=== PATIENT | female | born 1950 | race Two or more races ===

== ENCOUNTER 2016-12-28 23:06 | Emergency (ER) | payer OTHER ==
[~2016-12-28] VITALS: Ht 157.5 cm; Wt 91.3 kg
[2016-12-29 03:05] LABS: Basophils # (auto) 0 uL; Basophils % (auto) 0.4 % (0.0-2.0); Eosinophils # (auto) 0.1 uL; Eosinophils % (auto) 1.3 % (0.0-7.0); Hematocrit 29.6 % (36.0-46.0); Hemoglobin 9.6 g/dL (12.2-16.2); Lymphocytes % (auto) 20.2 % (10.0-50.0); Mean Corpuscular Hemoglobin 28.2 pg (28.0-32.0); Mean Corpuscular Hgb Conc. 32.4 g/dL (32.0-36.0); Mean Corpuscular Volume 87.1 fL (80.0-100.0); Mean Platelet Volume 8.4 fL (7.4-10.4); Monocytes # (auto) 0.3 uL; Monocytes % (auto) 6.6 % (0.0-12.0); Neutrophils # (auto) 3.7 uL; Neutrophils % (auto) 71.5 % (37.0-80.0); Platelet Count (auto) 260 10^3/uL (140-450); Red Cell Distribution Width 13.8 % (11.6-16.0); White Blood Cell 5.1 10^3/uL (4.4-10.8)
[2016-12-29 03:07] LABS: Albumin 3.4 g/dL (3.4-5.0); BUN/Creatinine Ratio 3.5; Bilirubin, Total 0.7 mg/dL (0.2-1.0); Calcium 8.6 mg/dL (8.5-10.1); Potassium 3.7 mmol/L (3.5-5.1)
[2016-12-29 04:17] VITALS: BP 204/80
== END 2016-12-29 05:47 | disposition home or self-care (01) ==
LOC: ER 23:06 → EDBD 23:06 → ER 12-29 05:47
DX: T82.318A Breakdown (mechanical) of other vascular grafts, initial encounter (principal); E11.9 Type 2 diabetes mellitus without complications; I10 Essential (primary) hypertension; Z99.2 Dependence on renal dialysis
CPT/HCPCS: 36415; 80053; 85025

== ENCOUNTER 2017-02-20 15:02 | Emergency (ER) | payer OTHER ==
[~2017-02-20] VITALS: Ht 157.5 cm; Wt 90.7 kg
[2017-02-20 17:17] LABS: Albumin 3.3 g/dL (3.4-5.0); BUN/Creatinine Ratio 5.1; Bilirubin, Total 1.1 mg/dL (0.2-1.0); Calcium 9.5 mg/dL (8.5-10.1); Potassium 4.4 mmol/L (3.5-5.1); Total Protein 6.6 g/dL (6.4-8.2)
[2017-02-20 18:58] VITALS: BP 140/71
== END 2017-02-20 20:14 | disposition home or self-care (01) ==
LOC: ER 15:09
DX: I10 Essential (primary) hypertension (principal); E11.65 Type 2 diabetes mellitus with hyperglycemia
CPT/HCPCS: 36415; 80053; 82962

== ENCOUNTER 2017-03-08 22:52 | Inpatient (IN) | payer OTHER ==
[~2017-03-08] VITALS: Ht 157.5 cm; Wt 78.9 kg
[2017-03-08 23:49] LABS: Basophils # (auto) 0 uL; Basophils % (auto) 0.3 % (0.0-2.0); DEFINITIVE VIEW TRANSMISSION; Eosinophils # (auto) 0 uL; Eosinophils % (auto) 0.6 % (0.0-7.0); Hematocrit 38.2 % (36.0-46.0); Hemoglobin 11.9 g/dL (12.2-16.2); Lymphocytes # (auto) 0.9 uL; Lymphocytes % (auto) 16.2 % (10.0-50.0); Mean Corpuscular Hemoglobin 26.1 pg (28.0-32.0); Mean Corpuscular Hgb Conc. 31.3 g/dL (32.0-36.0); Mean Corpuscular Volume 83.5 fL (80.0-100.0); Mean Platelet Volume 8.3 fL (7.4-10.4); Monocytes # (auto) 0.4 uL; Monocytes % (auto) 7.5 % (0.0-12.0); Neutrophils % (auto) 75.4 % (37.0-80.0); Platelet Count (auto) 237 10^3/uL (140-450); Red Cell Distribution Width 15.6 % (11.6-16.0); White Blood Cell 5.3 10^3/uL (4.4-10.8)
[2017-03-08 23:57] LABS: Partial Thromboplastin Time 44.5 sec (22.64-33.71)
[2017-03-09] LABS: Prothrombin Time 49.9 sec (9.37-12.3)
[2017-03-09 00:01] LABS: INR 4.51 (0.9-1.15)
[2017-03-09 00:07] LABS: Albumin 2.9 g/dL (3.4-5.0); BUN/Creatinine Ratio 5.1; Bilirubin, Total 0.6 mg/dL (0.2-1.0); Potassium 3.4 mmol/L (3.5-5.1); Total Protein 6.4 g/dL (6.4-8.2)
[2017-03-09] MEDS ORDERED: MORPHINE SULF INJ 2 MG/ML SYRINGE 1ML IV PRN (04:45)
[2017-03-09] MEDS ORDERED: DOCUSATE SOD 100 MG CAP PO PRN (04:45)
[2017-03-09] MEDS ORDERED: PHYTONADIONE (VIT K)10 MG/ML 1ML VIAL SUBCUT ONE (04:45)
[2017-03-09] MEDS ORDERED: ALBUTEROL SULF 2.5 MG/0.5ML(0.5%) NEB SOLN NEB PRN (04:45)
[2017-03-09] MEDS ORDERED: IPRATROPIUM BROM 0.5 MG/2.5ML INH SOL NEB PRN (04:45)
[2017-03-09] MEDS ORDERED: DEXTROSE (50%) 50ML SYRG IV PRN (04:45)
[2017-03-09] MEDS ORDERED: NITROGLYCERIN 0.4 MG SL TAB SL PRN (04:45)
[2017-03-09] MEDS: ACCU-CHEK COMFORT CURVE STRIP VI SCH ×2 (05:26→12:05)
[2017-03-09] MEDS: InsuLIN REG 1unit/0.01ml Soln (100units/ml) SC SCH ×2 (05:31→12:05)
[2017-03-09 06:52] VITALS: BP 166/76
[2017-03-09 09:20] VITALS: BP 149/74
[2017-03-09 09:30] VITALS: BP 149/72
[2017-03-09] MEDS ORDERED: ALPRAZolam 0.5 MG TAB PO SCH (10:00)
[2017-03-09] MEDS ORDERED: METOPROLOL TARTRATE 50 MG TAB PO SCH (10:00)
[2017-03-09] MEDS ORDERED: PANTOPRAZOLE SODIUM 40 MG/10 ML VIAL IV SCH (10:00)
[2017-03-09 10:45] LABS: Partial Thromboplastin Time 43.2 sec (22.64-33.71)
[2017-03-09 10:50] LABS: Prothrombin Time 44.7 sec (9.37-12.3)
[2017-03-09 10:52] LABS: INR 4.04 (0.9-1.15)
[2017-03-09 11:20] VITALS: BP 149/81
[2017-03-09 13:48] VITALS: BP 132/68
[2017-03-09] MEDS ORDERED: PRAMIPEXOLE DIHYDROCHLORIDE MO 0.25 MG TAB PO SCH (22:00)
== END 2017-03-09 16:00 | disposition home or self-care (01) | DRG 314 ==
LOC: EDBD 22:52 → ER 22:52 → TELE 22:53 → TELE-CENTR 03-09 09:09
PROVIDERS: ADMIT Family Medicine; ATTEND Internal Medicine Geriatric Medicine
DX: T82.838A Hemorrhage due to vascular prosthetic devices, implants and grafts, initial encounter (principal); N18.6 End stage renal disease; I12.0 Hypertensive chronic kidney disease with stage 5 chronic kidney disease or end stage renal disease; D68.32 Hemorrhagic disorder due to extrinsic circulating anticoagulants; Y83.8 Other surgical procedures as the cause of abnormal reaction of the patient, or of later complication, without mention of misadventure at the time of the procedure; D63.1 Anemia in chronic kidney disease; E03.9 Hypothyroidism, unspecified; E11.22 Type 2 diabetes mellitus with diabetic chronic kidney disease; F41.9 Anxiety disorder, unspecified; I48.91 Unspecified atrial fibrillation; T45.515A Adverse effect of anticoagulants, initial encounter; Z86.73 Personal history of transient ischemic attack (TIA), and cerebral infarction without residual deficits; Z99.2 Dependence on renal dialysis; Y92.89 Other specified places as the place of occurrence of the external cause; Z90.49 Acquired absence of other specified parts of digestive tract
CPT/HCPCS: 36415; 80053; 82962; 83036; 85025; 85610; 85730; 96372; C9113; J1815; J3430

== ENCOUNTER 2017-03-31 18:39 | Emergency (ER) | payer OTHER ==
[~2017-03-31] VITALS: Ht 160 cm; Wt 92.5 kg
[2017-03-31] MEDS ORDERED: NEOMYCIN-BACITRACIN-POLYM UNITDOSE PKG TOP OINT TOP ONE (20:00)
[2017-03-31] MEDS ORDERED: cefTRIAXone 1GM/50ML D5W 50 ML IV ONE (20:15)
[2017-03-31 21:39] LABS: Basophils # (auto) 0 uL; Basophils % (auto) 0.3 % (0.0-2.0); CONDITION Y; DEFINITIVE SEE PRINTOUT; Eosinophils # (auto) 0 uL; Eosinophils % (auto) 0.4 % (0.0-7.0); Lymphocytes # (auto) 0.9 uL; Lymphocytes % (auto) 21.8 % (10.0-50.0); Mean Corpuscular Hemoglobin 26.1 pg (28.0-32.0); Mean Corpuscular Hgb Conc. 31.6 g/dL (32.0-36.0); Mean Corpuscular Volume 82.7 fL (80.0-100.0); Mean Platelet Volume 9.3 fL (7.4-10.4); Monocytes # (auto) 0.4 uL; Monocytes % (auto) 10.5 % (0.0-12.0); Neutrophils # (auto) 2.8 uL; Platelet Count (auto) 161 10^3/uL (140-450); Red Cell Distribution Width 19.3 % (11.6-16.0); White Blood Cell 4.2 10^3/uL (4.4-10.8)
[2017-03-31 21:46] LABS: Albumin 2.6 g/dL (3.4-5.0); BUN/Creatinine Ratio 3.7; Calcium 8.5 mg/dL (8.5-10.1); Potassium 4.1 mmol/L (3.5-5.1)
[2017-03-31 21:49] LABS: Bilirubin, Total 0.8 mg/dL (0.2-1.0); Total Protein 5.6 g/dL (6.4-8.2)
[2017-03-31 21:53] LABS: Partial Thromboplastin Time 39.5 sec (22.64-33.71)
[2017-03-31 21:56] LABS: Prothrombin Time 44.3 sec (9.37-12.3)
[2017-03-31 21:59] LABS: INR 4.01 (0.9-1.15)
[2017-03-31 22:21] VITALS: BP 150/81
== END 2017-03-31 23:20 | disposition home or self-care (01) ==
LOC: EDBD 18:39 → EDUNIT# 18:39 → ER 18:46
DX: T82.838A Hemorrhage due to vascular prosthetic devices, implants and grafts, initial encounter (principal); Z86.73 Personal history of transient ischemic attack (TIA), and cerebral infarction without residual deficits; E11.22 Type 2 diabetes mellitus with diabetic chronic kidney disease; N18.6 End stage renal disease; I12.0 Hypertensive chronic kidney disease with stage 5 chronic kidney disease or end stage renal disease; E07.9 Disorder of thyroid, unspecified; Z90.49 Acquired absence of other specified parts of digestive tract; Z98.51 Tubal ligation status; D68.9 Coagulation defect, unspecified; Z99.2 Dependence on renal dialysis; Y84.1 Kidney dialysis as the cause of abnormal reaction of the patient, or of later complication, without mention of misadventure at the time of the procedure; Y92.89 Other specified places as the place of occurrence of the external cause
CPT/HCPCS: 36415; 80053; 82962; 85025; 85610; 85730; 93005; 96365; 99291; J0696

== ENCOUNTER 2017-05-21 17:09 | Emergency (ER) | payer OTHER, MEDICAID ==
[~2017-05-21] VITALS: Ht 157.5 cm; Wt 94.8 kg
[2017-05-21 17:28] LABS: Basophils # (auto) 0 uL; Basophils % (auto) 0.3 % (0.0-2.0); CONDITION Y; DEFINITIVE SEE PRINTOUT; Eosinophils # (auto) 0 uL; Eosinophils % (auto) 0.2 % (0.0-7.0); Hematocrit 36.5 % (36.0-46.0); Hemoglobin 11.6 g/dL (12.2-16.2); Lymphocytes # (auto) 0.7 uL; Lymphocytes % (auto) 13.8 % (10.0-50.0); Mean Corpuscular Hemoglobin 27.3 pg (28.0-32.0); Mean Corpuscular Hgb Conc. 31.9 g/dL (32.0-36.0); Mean Corpuscular Volume 85.6 fL (80.0-100.0); Monocytes # (auto) 0.2 uL; Monocytes % (auto) 5.2 % (0.0-12.0); Neutrophils # (auto) 3.9 uL; Neutrophils % (auto) 80.5 % (37.0-80.0); Platelet Count (auto) 168 10^3/uL (140-450); White Blood Cell 4.8 10^3/uL (4.4-10.8)
[2017-05-21 17:38] LABS: Red Cell Distribution Width 24.9 % (11.6-16.0)
[2017-05-21 17:40] LABS: Calcium 9.2 mg/dL (8.5-10.1); Potassium 3.3 mmol/L (3.5-5.1)
[2017-05-21 17:42] LABS: BUN/Creatinine Ratio 5.8
[2017-05-21 17:44] LABS: Total Protein 6.7 g/dL (6.4-8.2)
[2017-05-21 17:45] LABS: Platelet Estimate Adequate; Stomatocytes Few
[2017-05-21 17:46] LABS: Anisocytosis Moderate; Ovalocytes FEW; Polychromasia Slight
[2017-05-21 21:50] VITALS: BP 151/76
[2017-05-21] MEDS ORDERED: cefTRIAXone SOD 1,000 MG VL ONE (22:22)
[2017-05-21] MEDS ORDERED: cefTRIAXone SOD 1,000 MG VL IM ONE (22:30)
== END 2017-05-21 23:19 | disposition home or self-care (01) ==
LOC: ER 17:10
DX: T82.7XXA Infection and inflammatory reaction due to other cardiac and vascular devices, implants and grafts, initial encounter (principal); E11.22 Type 2 diabetes mellitus with diabetic chronic kidney disease; I12.0 Hypertensive chronic kidney disease with stage 5 chronic kidney disease or end stage renal disease; N18.6 End stage renal disease; Z99.2 Dependence on renal dialysis; Z90.89 Acquired absence of other organs; Z90.49 Acquired absence of other specified parts of digestive tract
CPT/HCPCS: 36415; 80053; 85025; 99284; J0696

== ENCOUNTER 2017-09-13 09:37 | Emergency (ER) | payer OTHER, MEDICAID ==
[~2017-09-13] VITALS: Ht 157.5 cm; Wt 93.0 kg
[2017-09-13 10:41] LABS: Basophils # (auto) 0 uL; Basophils % (auto) 0.3 % (0.0-2.0); Eosinophils # (auto) 0 uL; Eosinophils % (auto) 0.2 % (0.0-7.0); Hematocrit 43.8 % (36.0-46.0); Hemoglobin 13.7 g/dL (12.2-16.2); Lymphocytes # (auto) 0.6 uL; Lymphocytes % (auto) 15.9 % (10.0-50.0); Mean Corpuscular Hemoglobin 28.3 pg (28.0-32.0); Mean Corpuscular Hgb Conc. 31.2 g/dL (32.0-36.0); Mean Corpuscular Volume 90.5 fL (80.0-100.0); Mean Platelet Volume 8.7 fL (6.9-10.8); Monocytes # (auto) 0.5 uL; Monocytes % (auto) 12.1 % (0.0-12.0); Neutrophils # (auto) 2.7 uL; Neutrophils % (auto) 71.5 % (37.0-80.0); Nucleated Red Blood Cells % 0.4 %; Platelet Count (auto) 128 10^3/uL (140-450); Red Cell Distribution Width 18.8 % (11.8-14.3); White Blood Cell 3.8 10^3/uL (4.4-10.8)
[2017-09-13 11:04] LABS: Albumin 3.2 g/dL (3.4-5.0); BUN/Creatinine Ratio 5.3; Bilirubin, Total 1.9 mg/dL (0.2-1.0); Calcium 7.8 mg/dL (8.5-10.1); Potassium 3.8 mmol/L (3.5-5.1); Total Protein 6.7 g/dL (6.4-8.2)
[2017-09-13 12:23] VITALS: BP 139/86
== END 2017-09-13 16:08 | disposition home or self-care (01) ==
LOC: ER 09:37
DX: E11.22 Type 2 diabetes mellitus with diabetic chronic kidney disease (principal); I12.0 Hypertensive chronic kidney disease with stage 5 chronic kidney disease or end stage renal disease; N18.6 End stage renal disease; R60.0 Localized edema; Z99.2 Dependence on renal dialysis; E07.9 Disorder of thyroid, unspecified; Z86.73 Personal history of transient ischemic attack (TIA), and cerebral infarction without residual deficits
CPT/HCPCS: 36415; 71010; 80053; 84484; 85025; 93970

== ENCOUNTER 2018-05-10 16:25 | Emergency (ER) | payer MEDICAID, OTHER ==
[~2018-05-10] VITALS: Ht 157.5 cm; Wt 81.6 kg
[2018-05-10] MEDS ORDERED: HYDROcodone-ACET 10/325MG TAB PO ONE (21:15)
[2018-05-10 21:23] LABS: Basophils # (auto) 0 uL; Basophils % (auto) 0.3 % (0.0-2.0); Eosinophils # (auto) 0 uL; Eosinophils % (auto) 0.5 % (0.0-7.0); Hematocrit 31.8 % (36.0-46.0); Hemoglobin 10.4 g/dL (12.2-16.2); Lymphocytes # (auto) 0.6 uL; Lymphocytes % (auto) 13.6 % (10.0-50.0); Mean Corpuscular Hemoglobin 29.4 pg (28.0-32.0); Mean Corpuscular Hgb Conc. 32.8 g/dL (32.0-36.0); Mean Corpuscular Volume 89.7 fL (80.0-100.0); Monocytes # (auto) 0.5 uL; Monocytes % (auto) 10.4 % (0.0-12.0); Neutrophils # (auto) 3.3 uL; Neutrophils % (auto) 75.2 % (37.0-80.0); Nucleated Red Blood Cells % 0.1 %; Platelet Count (auto) 186 10^3/uL (140-450); Red Blood Cells 3.55 10^6/uL (4.0-5.20); Red Cell Distribution Width 16.2 % (11.8-14.3); White Blood Cell 4.4 10^3/uL (4.4-10.8)
[2018-05-10 22:03] LABS: INR 3.84 (0.9-1.15); Partial Thromboplastin Time 42.5 sec (23.78-33.04); Prothrombin Time 38.1 sec (9.27-12.13)
[2018-05-10 22:35] LABS: Albumin 3.1 g/dL (3.4-5.0); BUN/Creatinine Ratio 5.6; Potassium 3.5 mmol/L (3.5-5.1)
[2018-05-10 23:18] LABS: Bilirubin, Total 1.1 mg/dL (0.2-1.0); Total Protein 6.9 g/dL (6.4-8.2)
[2018-05-11 07:18] VITALS: BP 162/53
== END 2018-05-11 07:35 | disposition home or self-care (01) ==
LOC: ER 16:25 → EDBD 16:25 → ER 05-11 07:35
DX: T82.591A Other mechanical complication of surgically created arteriovenous shunt, initial encounter (principal); T82.838A Hemorrhage due to vascular prosthetic devices, implants and grafts, initial encounter; I12.0 Hypertensive chronic kidney disease with stage 5 chronic kidney disease or end stage renal disease; E11.22 Type 2 diabetes mellitus with diabetic chronic kidney disease; N18.6 End stage renal disease; Z99.2 Dependence on renal dialysis; Z90.49 Acquired absence of other specified parts of digestive tract
CPT/HCPCS: 36415; 80053; 85025; 85610; 85730

== ENCOUNTER 2018-08-26 18:23 | Emergency (ER) | payer OTHER ==
[~2018-08-26] VITALS: Ht 160 cm; Wt 90.7 kg
[2018-08-26 19:14] LABS: Basophils # (auto) 0 uL; Basophils % (auto) 0.3 % (0.0-2.0); Eosinophils # (auto) 0 uL; Eosinophils % (auto) 0.4 % (0.0-7.0); Hematocrit 41.4 % (36.0-46.0); Hemoglobin 13.1 g/dL (12.2-16.2); Lymphocytes # (auto) 0.7 uL; Lymphocytes % (auto) 15.3 % (10.0-50.0); Mean Corpuscular Hemoglobin 27.7 pg (28.0-32.0); Mean Corpuscular Hgb Conc. 31.6 g/dL (32.0-36.0); Mean Corpuscular Volume 87.6 fL (80.0-100.0); Monocytes # (auto) 0.3 uL; Monocytes % (auto) 6.7 % (0.0-12.0); Neutrophils # (auto) 3.4 uL; Neutrophils % (auto) 77.3 % (37.0-80.0); Nucleated Red Blood Cells % 0.1 %; Platelet Count (auto) 240 10^3/uL (140-450); Red Blood Cells 4.73 10^6/uL (4.0-5.20); Red Cell Distribution Width 16.7 % (11.8-14.3); White Blood Cell 4.4 10^3/uL (4.4-10.8)
[2018-08-26 19:30] LABS: INR 2.29 (0.9-1.15); Partial Thromboplastin Time 35.5 sec (23.78-33.04); Prothrombin Time 23.4 sec (9.27-12.13)
[2018-08-26 19:34] LABS: Albumin 3.8 g/dL (3.4-5.0); BUN/Creatinine Ratio 5.8; Potassium 3.7 mmol/L (3.5-5.1)
[2018-08-26 19:37] LABS: Bilirubin, Total 1.2 mg/dL (0.2-1.0); Total Protein 8.6 g/dL (6.4-8.2)
[2018-08-26] MEDS ORDERED: ACETAMINOPHEN 325 MG TAB PO ONE (21:30)
[2018-08-27] MEDS ORDERED: HYDROcodone-ACET 7.5/325MG TAB PO ONE (02:00)
[2018-08-27 06:07] VITALS: BP 162/78
== END 2018-08-27 06:19 | disposition home or self-care (01) ==
LOC: ER 18:23
DX: T82.838A Hemorrhage due to vascular prosthetic devices, implants and grafts, initial encounter (principal); E07.9 Disorder of thyroid, unspecified; E11.22 Type 2 diabetes mellitus with diabetic chronic kidney disease; I12.0 Hypertensive chronic kidney disease with stage 5 chronic kidney disease or end stage renal disease; N18.6 End stage renal disease; Z99.2 Dependence on renal dialysis; Z90.49 Acquired absence of other specified parts of digestive tract; Z86.73 Personal history of transient ischemic attack (TIA), and cerebral infarction without residual deficits; Y84.1 Kidney dialysis as the cause of abnormal reaction of the patient, or of later complication, without mention of misadventure at the time of the procedure; Y92.89 Other specified places as the place of occurrence of the external cause
CPT/HCPCS: 36415; 80053; 85025; 85610; 85730; 86850; 86900; 86901

== ENCOUNTER 2019-12-09 13:06 | Inpatient (IN) | payer OTHER ==
[~2019-12-09] VITALS: Ht 152.4 cm; Wt 82.0 kg
[~2019-12-09 13:06] MED LIST: APIX2.5T PO; CINA30TA2 PO; DIGO0.12 PO; GABA100C9 PO; GLIP2.5T28 PO; METO-169 PO; NALO1TAB2 PO; PANT40TA2 PO; ROPI6TAB PO; SEVE800T8 PO
[2019-12-09] MEDS ORDERED: SODIUM CHLORIDE 0.9% 500 ML IVB ONE (13:51)
[2019-12-09] MEDS ORDERED: SODIUM CHLORIDE 0.9% 1,000 ML IV ONE (13:51)
[2019-12-09 15:57] LABS: Lactic Acid w/Reflex 2.1 mmol/L (0.4-2.0)
[2019-12-09 15:59] LABS: Albumin 2.9 g/dL (3.4-5.0); Anion Gap 14 (5-15); Blood Alcohol < 3.0 mg/dL (0-5); Calcium 9.3 mg/dL (8.5-10.1); Carbon Dioxide 25 mmol/L (21-32); Chloride 95 mmol/L (98-107); Glucose 370 mg/dL (74-106); Potassium 4.9 mmol/L (3.5-5.1)
[2019-12-09 16:04] LABS: Alkaline Phosphatase 463 U/L (45-117); Bilirubin, Total 1.4 mg/dL (0.2-1.0); GFR African American 10 mL/min; GFR Non-African American 8 mL/min
[2019-12-09 16:12] LABS: Basophils # (auto) 0 10 ^3/uL (0-0.2); Basophils % (auto) 0.1 % (0.0-2.0); Eosinophils # (auto) 0 10 ^3/uL (0-0.8); Hemoglobin 11.3 g/dL (12.2-16.2); Lymphocytes # (auto) 0.4 10 ^3/uL (0.4-5.4); Lymphocytes % (auto) 3.6 % (10.0-50.0); Mean Corpuscular Hemoglobin 28.1 pg (28.0-32.0); Mean Corpuscular Hgb Conc. 32.2 g/dL (32.0-36.0); Mean Corpuscular Volume 87.3 fL (80.0-100.0); Monocytes # (auto) 0.5 10 ^3/uL (0-1.3); Monocytes % (auto) 5.3 % (0.0-12.0); Neutrophils # (auto) 9.3 10 ^3/uL (1.6-8.6); Platelet Count (auto) 233 10^3/uL (140-450); Red Blood Cells 4.01 10^6/uL (4.0-5.20); Red Cell Distribution Width 16.8 % (11.8-14.3); White Blood Cell 10.3 10^3/uL (4.4-10.8)
[2019-12-09 16:17] LABS: Alanine Aminotransferase 73 U/L (13-56); Aspartate Aminotransferase 161 U/L (15-37); BUN/Creatinine Ratio 8.4; Blood Urea Nitrogen 45 mg/dL (7-18); Total Protein 7.3 g/dL (6.4-8.2)
[2019-12-09 16:21] LABS: Sodium 134 mmol/L (136-145)
[2019-12-09 18:07] LABS: INR 1.24 (0.9-1.15); Partial Thromboplastin Time 31.9 sec (23.64-32.05)
[2019-12-09] MEDS ORDERED: cefTRIAXone 1GM/50ML D5W 50 ML IV ONE (18:15)
[2019-12-09 19:00] LABS: Basophils # (auto) 0 10 ^3/uL (0-0.2); Basophils % (auto) 0.1 % (0.0-2.0); Eosinophils # (auto) 0 10 ^3/uL (0-0.8); Hematocrit 34.4 % (36.0-46.0); Hemoglobin 11.3 g/dL (12.2-16.2); Lymphocytes # (auto) 0.4 10 ^3/uL (0.4-5.4); Lymphocytes % (auto) 4.6 % (10.0-50.0); Mean Corpuscular Hemoglobin 28.4 pg (28.0-32.0); Mean Corpuscular Hgb Conc. 32.7 g/dL (32.0-36.0); Mean Corpuscular Volume 86.8 fL (80.0-100.0); Monocytes # (auto) 0.6 10 ^3/uL (0-1.3); Monocytes % (auto) 5.9 % (0.0-12.0); Neutrophils # (auto) 8.6 10 ^3/uL (1.6-8.6); Neutrophils % (auto) 89.4 % (37.0-80.0); Platelet Count (auto) 219 10^3/uL (140-450); Red Blood Cells 3.96 10^6/uL (4.0-5.20); White Blood Cell 9.6 10^3/uL (4.4-10.8)
[2019-12-09] MEDS ORDERED: DEXTROSE (50%) 50ML SYRG IV PRN (19:00)
[2019-12-09] MEDS ORDERED: MORPHINE SULF INJ 2 MG/ML SYRINGE 1ML IV PRN (19:00)
[2019-12-09] MEDS ORDERED: NITROGLYCERIN 0.4 MG SL TAB SL PRN (19:00)
[2019-12-09] MEDS ORDERED: BUMETANIDE 1mg/4ml VIAL (0.25mg/ml) IV ONE (19:00)
[2019-12-09 19:11] LABS: Urine Bacteria MANY /hpf (None Seen); Urine Blood 2+ /uL (Negative); Urine Mucus FEW (None Seen); Urine Specific Gravity 1.013 (1.001-1.035); Urine WBC 691 /hpf (0 - 5); Urine WBC Clumps PRESENT /hpf (None Seen)
[2019-12-09 22:00] VITALS: BP 163/72
--- NOTE | 2019-12-09 22:25 | NUR ---
PATIENT ARRIVED TO UNIT VIA GURNEY. SHE IS UNABLE TO AMBULATE OR TRANSFER. SHE HAS A CONTORTED RIGHT ANKLE THAT I WAS TOLD WAS DUE TO A PREVIOUSLY DISLOCATED ANKLE 5 YEARS AGO. SHE HAS AN OPTIFOAM COVERING A SACRAL PRESSURE ULCER. SHE HAS SOME SWELLING TO BILATERAL KNEES WITH RIGHT BEING GREATER THAN THE LEFT. SHE HAS A LEFT UPPER ARM FISTULA WITH AN 18 GAUGE IV TO THE RIGHT WRIST. SHE HAS A BURNS CATHETER THAT IS DRAINING YELLOW URINE PLACED IN THE EMERGENCY ROOM. SHE IS CURRENTLY ON 4L NC. FAMILY IS BEDSIDE. ALL QUESTIONS WERE ANSWERED REGARDING HER PLAN OF CARE. BED IS LOCKED IN LOWEST POSITION WITH SIDE RAILS UP X2. WILL CONTINUE TO MONITOR.
[2019-12-09 22:45] VITALS: BP 163/72
[2019-12-09] MEDS: APIXABAN 2.5 MG TAB PO SCH (22:56)
[2019-12-09] MEDS: GABAPENTIN 100 MG CAP PO SCH (22:57)
[2019-12-09] MEDS: ACCU-CHEK COMFORT CURVE STRIP VI SCH (22:57)
[2019-12-09] MEDS: InsuLIN REG 1unit/0.01ml Soln (100units/ml) SC SCH (22:58)
--- NOTE | 2019-12-09 23:00 | NUR ---
FAMILY STATED THAT THEY WILL BRING IN A LIST OF HER HOME MEDICATIONS TOMORROW.
[2019-12-10] MEDS: ACETAMINOPHEN 500 MG TAB PO PRN ×2 (05:11→14:57)
[2019-12-10 05:50] LABS: Basophils # (auto) 0 10 ^3/uL (0-0.2); Basophils % (auto) 0.1 % (0.0-2.0); Eosinophils # (auto) 0 10 ^3/uL (0-0.8); Hematocrit 34.9 % (36.0-46.0); Hemoglobin 11.4 g/dL (12.2-16.2); Lymphocytes # (auto) 0.4 10 ^3/uL (0.4-5.4); Lymphocytes % (auto) 4.8 % (10.0-50.0); Mean Corpuscular Hemoglobin 28.1 pg (28.0-32.0); Mean Corpuscular Hgb Conc. 32.6 g/dL (32.0-36.0); Mean Corpuscular Volume 86.4 fL (80.0-100.0); Monocytes # (auto) 0.4 10 ^3/uL (0-1.3); Neutrophils # (auto) 7.3 10 ^3/uL (1.6-8.6); Neutrophils % (auto) 90.1 % (37.0-80.0); Nucleated Red Blood Cells % 0.1 %; Platelet Count (auto) 232 10^3/uL (140-450); Red Blood Cells 4.04 10^6/uL (4.0-5.20); Red Cell Distribution Width 17.1 % (11.8-14.3); White Blood Cell 8.1 10^3/uL (4.4-10.8)
[2019-12-10 05:59] VITALS: BP 127/57
[2019-12-10] MEDS: ACCU-CHEK COMFORT CURVE STRIP VI SCH ×4 (06:37→21:50)
[2019-12-10] MEDS: InsuLIN REG 1unit/0.01ml Soln (100units/ml) SC SCH ×4 (06:38→21:51)
--- NOTE | 2019-12-10 06:40 | NUR ---
CRITICAL LAB: TROPONIN 1.500
--- NOTE | 2019-12-10 06:55 | NUR ---
PHARMACY CALLED TO GET ELIQUIS DOSE ADJUSTED FROM 2.5 TO 5MG SINCE THEY DO NOT MEET CRITERIA FOR RENAL ADJUSTED DOSE OF 2.5
--- NOTE | 2019-12-10 06:57 | NUR ---
PLACED CALL TO HOSPITALIST FOR ELEVATED TROPONIN AND CHANGE OF ELIQUIS DOSE.
[2019-12-10] MEDS: SEVELAMER 800 MG TAB PO SCH ×3 (08:07→17:55)
[2019-12-10 09:00] VITALS: BP 126/61
[2019-12-10] MEDS: cefTRIAXone 1GM/50ML D5W 50 ML IV SCH (09:27)
[2019-12-10] MEDS: APIXABAN 2.5 MG TAB PO SCH ×2 (09:30→21:55)
[2019-12-10] MEDS: GABAPENTIN 100 MG CAP PO SCH ×3 (09:30→21:54)
--- NOTE | 2019-12-10 09:30 | NUR ---
AIR MATTRESS: Air mattress ordered at [facility],Reference # [id number]; ETA 12/10/19 @1635, Call [facility] if need to follow up at [phone] Addendum: 12/10/19 at 1549 by Margarette Carlisle RN Amended: Links added.
[2019-12-10] MEDS: METOPROLOL SUCCINATE XL 50 MG TAB PO SCH (09:31)
[2019-12-10] MEDS ORDERED: PANTOPRAZOLE 40 MG TAB PO SCH (10:00)
--- NOTE | 2019-12-10 10:05 | NUR ---
Microbiology Received call from microbiology regarding patient's blood culture. Positive for Gram negative rods. Patient on Rocephin 1gm daily. MD will be notified on rounding.
--- NOTE | 2019-12-10 11:14 | NUR ---
Critical Troponin Troponin 1.5, Sadie Chang is aware. Patient for possible dialysis today.
--- NOTE | 2019-12-10 11:42 | NUR ---
WOUND CARE NOTE: Wound care in to see patient per wound care request regarding multiple skin integrity issue that are noted present on admission. Bedside nurse took photograph of patient's wounds/skin issue upon admission for reference. Patient is 69 years old female with admitting diagnosis of Metabolic Encephalopathy. Patient with history of htn,A Fib, CVA, Renal disease, DM,hyperlipidemia and Thyroid disease. Patient is resting in bed in Rm. 275B. Patient is awake, alert and able to verbalize needs. Patient reports pain on her digits, BRIANDA Parker at bedside and aware. Patient need assistance in turning and repositioning. Her Cristhian score is 12. Skin/wound assessment done with the assistance of patient's nurse, BRIANDA Parker. Patient's Rt and Lt sacrum has open full thickness wounds both measuring 2x2cm no measurable depth. Wound bed has mixture of red granulation tissue, pale pink and yellow slough.Kelsy wound is dark red, minimal serous drainage noted, no odor noted. Patient states that she has had the sacral wounds for couple of weeks. Sacral wounds are consistent with Stage 3 pressure injury. Cleansed patient's sacral pressure injuries with wound cleanser,patted dry with gauze, applied Thera honey gel and covered with Opti foam gentle dressing. Patient's Rt medial heel noted with non-blanchable redness (Stage 1 pressure injury). To posterior aspect of Rt heel noted 3x3cm dark maroon/purple intact DTI(Deep Tissue Injury). DTI is soft and boggy to touch. Patient reports "painful" R heel. Advised BRIANDA parker to apply [place] foam boots to patient's BLE. Patient tolerated well, repositioned for comfort facing her Lt side, redistributed pressure points with pillows. BRIANDA Parker at bedside. RECOMMENDATION: Nursing to continue with Daily/PRN dressing change to sacral pressure injuries per MD order, Dietary consult for wounds, frequent turning and re positioning schedule as condition permits, redistribute pressure points with pillows, air mattress (ordered),Alesha foam boot to BLE or elevate heels on pillows,continue monitoring by wound care while patient is hospitalized. Addendum: 12/10/19 at 1545 by Margarette Carlisle RN Amended: Links added.
[2019-12-10 12:27] VITALS: BP 152/64
[2019-12-10] MEDS ORDERED: TEMA15CA91 PO (15:18)
[2019-12-10] MEDS ORDERED: PANT40TA2 PO (15:18)
[2019-12-10] MEDS ORDERED: HYDR50TA15 PO (15:18)
[2019-12-10] MEDS ORDERED: GABA300C10 PO (15:18)
[2019-12-10] MEDS ORDERED: ISOS30TA4 PO (15:18)
[2019-12-10] MEDS ORDERED: LACTULOSE 20Gm/30ML SOLN PO ONE (15:45)
[2019-12-10] MEDS ORDERED: DOCUSATE SOD 100 MG CAP PO ONE (15:45)
[2019-12-10] MEDS: PANTOPRAZOLE 40 MG TAB PO SCH (16:00)
[2019-12-10] MEDS ORDERED: GABAPENTIN 300 MG CAP PO SCH (16:15)
--- NOTE | 2019-12-10 16:32 | NUR ---
D/C Planning Per [facility] consult for SNF placement. [facility] was [facility]ed to [facility]. Advised BRIANDA Parker physical therapy notes where pending.
--- NOTE | 2019-12-10 17:04 | NUR ---
Air Mattress Delivered
[2019-12-10 17:07] VITALS: BP 132/62
--- NOTE | 2019-12-10 17:09 | NUR ---
Medication reconciliation Family members at bedside. Home medications reconciled as per medications brought in from home. Family is requesting that the patient is not given any strong pain medication.
[2019-12-10] MEDS ORDERED: ROPI0.2533 PO (17:19)
--- NOTE | 2019-12-10 17:20 | NUR ---
Air Mattress Patient transferred to new bed with air mattress.
--- NOTE | 2019-12-10 17:30 | NUR ---
employment programs analyst Dialysis nurse at bedside.
[2019-12-10] MEDS ORDERED: SODIUM CHL 0.9% 1000 ML BAG XX ONE (17:45)
--- NOTE | 2019-12-10 18:13 | NUR ---
Critical troponin Troponin trending down 1.350. dough mixer helper at bedside. Cardiology already aware of 1.5 levels
--- NOTE | 2019-12-10 19:45 | NUR ---
BM/Patient linen change Patient had linen change after incontinence episode, lactulose given earlier for constipation. Skin integrity assessed for any changes, sacral pressure area, barrier cream applied. Full linen change. Patient repositioned for comfort with assistance. Dialysis nurse at bedside
[2019-12-10 20:00] VITALS: BP 131/56
--- NOTE | 2019-12-10 20:35 | NUR ---
Dr. Salazar at bedside
--- NOTE | 2019-12-10 21:28 | NUR ---
Dialysis Complete 2L out, pt tolerated well
[2019-12-10] MEDS: DOCUSATE SOD 100 MG CAP PO SCH (21:51)
[2019-12-10 22:00] VITALS: BP 131/56
--- NOTE | 2019-12-10 23:51 | NUR ---
Opening Shift Note Assumed care of patient, awake and alert. No S/S of distress/SOB or pain. Instructed on POC and to call for assist PRN, will continue to monitor for changes Q1hr and PRN. Dialysis at bedside Addendum: 12/11/19 at 0352 by Angela Pearson RN RN Wrong time 12/09 1944
[2019-12-11] MEDS: ACETAMINOPHEN 500 MG TAB PO PRN (01:11)
--- NOTE | 2019-12-11 01:11 | NUR ---
Pain Management Pt medicated for c/o 07/12 diabetic nerve pain on fingers, tylenol administered, 2200 gabapentin has been administered. Pt admitted for metabolic encephalopathy, family requests only give tylenol for pain, confusion increased with pain medication. Will continue to monitor
[2019-12-11 05:00] VITALS: BP 159/66
[2019-12-11 05:47] LABS: Basophils # (auto) 0 10 ^3/uL (0-0.2); Basophils % (auto) 0.2 % (0.0-2.0); Eosinophils # (auto) 0.1 10 ^3/uL (0-0.8); Eosinophils % (auto) 1.2 % (0.0-7.0); Hematocrit 32.9 % (36.0-46.0); Hemoglobin 10.8 g/dL (12.2-16.2); Lymphocytes # (auto) 0.4 10 ^3/uL (0.4-5.4); Lymphocytes % (auto) 8.2 % (10.0-50.0); Mean Corpuscular Hemoglobin 28.3 pg (28.0-32.0); Mean Corpuscular Hgb Conc. 32.8 g/dL (32.0-36.0); Mean Corpuscular Volume 86.3 fL (80.0-100.0); Monocytes # (auto) 0.6 10 ^3/uL (0-1.3); Monocytes % (auto) 11.4 % (0.0-12.0); Platelet Count (auto) 181 10^3/uL (140-450); Red Blood Cells 3.81 10^6/uL (4.0-5.20)
[2019-12-11 06:02] LABS: Calcium 9.4 mg/dL (8.5-10.1); Magnesium 2.1 mg/dL (1.6-2.6); Potassium 3.9 mmol/L (3.5-5.1)
[2019-12-11] MEDS: ACCU-CHEK COMFORT CURVE STRIP VI SCH ×4 (06:20→22:19)
[2019-12-11] MEDS: GABAPENTIN 100 MG CAP PO SCH ×3 (06:49→22:13)
[2019-12-11] MEDS: InsuLIN REG 1unit/0.01ml Soln (100units/ml) SC SCH ×4 (06:53→22:19)
[2019-12-11] MEDS: SEVELAMER 800 MG TAB PO SCH ×3 (08:58→18:41)
[2019-12-11 09:00] VITALS: BP 156/42
[2019-12-11] MEDS: cefTRIAXone 1GM/50ML D5W 50 ML IV SCH (09:23)
[2019-12-11] MEDS: DOCUSATE SOD 100 MG CAP PO SCH ×2 (09:57→22:00)
--- NOTE | 2019-12-11 10:17 | NUR ---
assessment Patient is a 69 year old female who is alert and oriented. Patients cognitive abilities are intact. Prior to admission patient lived home with family and functioned with assistance. Per patient she is on service with [facility] MWF at 1130am. Patient is aware of her consult for family requesting SNF placement for rehab. Patient agrees to SNF. Patient has a wheelchair and fww for home use. I informed patient she has a right to speak to a social services director regarding all care. I informed patient she has a right to participate in any and all discharge planning. Patient does not have a POA and advanced directive. I have offered patient information on POA and advanced directives. I informed the patient the advantages and benefits of having an Advanced Directive. Patient verbalized understanding and agreed to discharge plan. Addendum: 12/11/19 at 1027 by Erika BELL Amended: Links added.
[2019-12-11] MEDS ORDERED: VANCOMYCIN 1GM/250ML 250 ML IV ONE (10:30)
[2019-12-11] MEDS ORDERED: VANCOMYCIN PER PHARMACY 0 MG IV SCH (10:30)
[2019-12-11] MEDS: PANTOPRAZOLE 40 MG TAB PO SCH (10:44)
[2019-12-11] MEDS: APIXABAN 2.5 MG TAB PO SCH ×2 (10:44→22:13)
[2019-12-11] MEDS: METOPROLOL SUCCINATE XL 50 MG TAB PO SCH (10:44)
[2019-12-11 12:57] VITALS: BP 142/37
[2019-12-11 17:00] VITALS: BP 136/38
[2019-12-11 22:00] VITALS: BP 148/68
[2019-12-12 05:00] VITALS: BP 132/57
[2019-12-12 06:18] LABS: Potassium 4.8 mmol/L (3.5-5.1)
[2019-12-12 06:20] LABS: BUN/Creatinine Ratio 11.6; Basophils # (auto) 0 10 ^3/uL (0-0.2); Basophils % (auto) 0.3 % (0.0-2.0); Eosinophils # (auto) 0.1 10 ^3/uL (0-0.8); Eosinophils % (auto) 1.8 % (0.0-7.0); Hematocrit 31.5 % (36.0-46.0); Hemoglobin 10.1 g/dL (12.2-16.2); Lymphocytes # (auto) 0.8 10 ^3/uL (0.4-5.4); Lymphocytes % (auto) 17.1 % (10.0-50.0); Mean Corpuscular Hemoglobin 27.4 pg (28.0-32.0); Mean Corpuscular Hgb Conc. 31.9 g/dL (32.0-36.0); Mean Corpuscular Volume 85.8 fL (80.0-100.0); Monocytes # (auto) 0.6 10 ^3/uL (0-1.3); Monocytes % (auto) 13.5 % (0.0-12.0); Neutrophils # (auto) 3.2 10 ^3/uL (1.6-8.6); Neutrophils % (auto) 67.3 % (37.0-80.0); Platelet Count (auto) 173 10^3/uL (140-450); Red Blood Cells 3.68 10^6/uL (4.0-5.20); Red Cell Distribution Width 16.9 % (11.8-14.3); White Blood Cell 4.8 10^3/uL (4.4-10.8)
[2019-12-12] MEDS: GABAPENTIN 100 MG CAP PO SCH ×3 (06:34→21:23)
[2019-12-12] MEDS: ACCU-CHEK COMFORT CURVE STRIP VI SCH ×4 (06:35→22:55)
[2019-12-12] MEDS: InsuLIN REG 1unit/0.01ml Soln (100units/ml) SC SCH ×4 (06:35→22:56)
[2019-12-12] MEDS ORDERED: SODIUM CHL 0.9% 1000 ML BAG XX ONE (07:00)
--- NOTE | 2019-12-12 07:35 | NUR ---
RECEIVED REPORT AND ASSUMED CARE OF PT. A/OX4. DENIED S/S ACUTE DISTRESS. UPDATE PT WITH POC. BED AT LOWEST POSITION. CALL LIGHT AND BELONGINGS WITHIN REACH. WILL CONT TO MONITOR.
[2019-12-12 09:00] VITALS: BP 151/69
[2019-12-12] MEDS: SEVELAMER 800 MG TAB PO SCH ×3 (09:08→17:53)
[2019-12-12] MEDS: cefTRIAXone 1GM/50ML D5W 50 ML IV SCH (09:08)
[2019-12-12] MEDS: APIXABAN 2.5 MG TAB PO SCH ×2 (09:09→21:23)
[2019-12-12] MEDS: PANTOPRAZOLE 40 MG TAB PO SCH (09:09)
[2019-12-12] MEDS: DOCUSATE SOD 100 MG CAP PO SCH ×2 (09:11→21:23)
[2019-12-12] MEDS: METOPROLOL SUCCINATE XL 50 MG TAB PO SCH ×2 (10:00→17:55)
--- NOTE | 2019-12-12 10:07 | NUR ---
DIALYSIS NURSE AT BEDSIDE.
[2019-12-12 13:00] VITALS: BP 124/39
[2019-12-12] MEDS ORDERED: ERTAPENEM SOD INJ 0.5 GM in SODIUM CHL 0.9% 50 ML IV ONE (13:00)
[2019-12-12] MEDS: ACETAMINOPHEN 500 MG TAB PO PRN (13:33)
--- NOTE | 2019-12-12 13:49 | NUR ---
Nutrition Assessment Notes Please refer to link for full assessment notes. Est energy needs: 3910-3729 kcals (20-23 kcal/kgBW) Est protein needs: 87-95 gms/day (1.1-1.2 gm/kgBW) d/t HD Will continue to monitor and reassess prn. Addendum: 12/12/19 at [address] Amended: Links added.
--- NOTE | 2019-12-12 14:06 | NUR ---
PER WORKFORCE PLANNING ANALYST, 3000ML WAS TAKEN OUT.
[2019-12-12] MEDS ORDERED: VANCOMYCIN 1GM/250ML 250 ML IV ONE (16:00)
[2019-12-12 17:00] VITALS: BP 160/63
--- NOTE | 2019-12-12 17:59 | NUR ---
METOPROL GIVEN AT THIS TIME PT HAD DIALYSIS
--- NOTE | 2019-12-12 19:06 | NUR ---
A/OX4. DENIED S/S ACUTE DISTRESS. ENDORSED CARE TO NIGHT NURSE.
[2019-12-12] MEDS ORDERED: EPOETIN ALFA 4,000 UNIT/ML VL SC ONE (21:00)
[2019-12-12 22:00] VITALS: BP 147/60
[2019-12-13 05:00] VITALS: BP 113/47
[2019-12-13] MEDS: InsuLIN REG 1unit/0.01ml Soln (100units/ml) SC SCH ×4 (06:22→21:19)
[2019-12-13] MEDS: ACCU-CHEK COMFORT CURVE STRIP VI SCH ×4 (06:22→21:25)
[2019-12-13] MEDS: GABAPENTIN 100 MG CAP PO SCH ×4 (06:22→21:49)
[2019-12-13 09:00] VITALS: BP 155/65
[2019-12-13] MEDS: SEVELAMER 800 MG TAB PO SCH ×3 (09:53→18:39)
[2019-12-13] MEDS: DOCUSATE SOD 100 MG CAP PO SCH ×2 (10:00→21:19)
[2019-12-13] MEDS: APIXABAN 2.5 MG TAB PO SCH ×3 (11:41→21:49)
[2019-12-13] MEDS: METOPROLOL SUCCINATE XL 50 MG TAB PO SCH (11:42)
[2019-12-13] MEDS: PANTOPRAZOLE 40 MG TAB PO SCH (11:43)
[2019-12-13 13:00] VITALS: BP 148/67
[2019-12-13] MEDS: ERTAPENEM SOD INJ 0.5 GM in SODIUM CHL 0.9% 50 ML IV SCH (14:55)
--- NOTE | 2019-12-13 16:03 | NUR ---
D/C Planning Faxed updated notes and Physical therapy notes to [facility]. Per Tiesha with [facility]:) they are aware of order and will be looking for placement for patient. Advised Tiesha order was originally faxed to them on 12/10/2019. Pending on placement.
[2019-12-13 17:00] VITALS: BP 166/44
[2019-12-13 20:00] VITALS: BP 155/65
--- NOTE | 2019-12-13 20:11 | NUR ---
Padilla catheter dc'd Order to discontinue padilla catheter. Padilla dc'd with clean technique following deflation of balloon. Patient tolerated well with no complaints of pain. Continue care.
--- NOTE | 2019-12-13 20:30 | NUR ---
PT TURNED;TOLERATED WELL. CALL LIGHT IN REACH WITH TWO SIDERAILS UP.
[2019-12-14 05:00] VITALS: BP 158/73
[2019-12-14] MEDS: InsuLIN REG 1unit/0.01ml Soln (100units/ml) SC SCH ×4 (06:06→22:30)
[2019-12-14] MEDS: GABAPENTIN 100 MG CAP PO SCH ×2 (06:23→22:29)
[2019-12-14] MEDS: ACCU-CHEK COMFORT CURVE STRIP VI SCH ×4 (06:44→22:30)
--- NOTE | 2019-12-14 06:44 | NUR ---
DIALYSIS NURSE PHONED STATING SHE WOULD BE IN AT 9AM TODAY.
[2019-12-14] MEDS: SEVELAMER 800 MG TAB PO SCH ×3 (07:53→18:15)
[2019-12-14 08:00] VITALS: BP 164/81
[2019-12-14 09:00] VITALS: BP 166/67
[2019-12-14] MEDS: METOPROLOL SUCCINATE XL 50 MG TAB PO SCH (10:00)
[2019-12-14] MEDS: DOCUSATE SOD 100 MG CAP PO SCH ×2 (10:41→22:27)
[2019-12-14] MEDS: PANTOPRAZOLE 40 MG TAB PO SCH (10:41)
--- NOTE | 2019-12-14 10:46 | NUR ---
Dr. Bell called for update on patient. Stated patient can transfer to SNF when bed becomes available.
[2019-12-14] MEDS ORDERED: SODIUM CHL 0.9% 1000 ML BAG XX ONE (12:00)
[2019-12-14 13:00] VITALS: BP 164/81
--- NOTE | 2019-12-14 14:24 | NUR ---
1415 12/14/19 I called [facility] and spoke with Tia-I let her know that per physical therapy patient was not ambulating much at home prior to admission but was able to transfer from bed to chair and now can not do that-per Tia she is going to speak with her MD regarding the eligibility for SNF placement and she will give me a call back.
--- NOTE | 2019-12-14 14:50 | NUR ---
DIALYSIS NURSE NOTIFIED ME SHE TOOK OFF 3 LITERS TODAY AND PATIENT TOLERATED DIALYSIS WELL.
[2019-12-14] MEDS ORDERED: VANCOMYCIN 500 MG in D5W 5% 100 ML IV ONE (15:00)
[2019-12-14 16:49] VITALS: BP 120/48
[2019-12-14] MEDS: ERTAPENEM SOD INJ 0.5 GM in SODIUM CHL 0.9% 50 ML IV SCH (16:57)
--- NOTE | 2019-12-14 17:12 | NUR ---
IV insertion IV access obtained by PICC line nurse, via clean sterile technique by inserting 20 gauge catheter to the right upper arm after 2 attempts. IV secured properly. No trauma to site. Patient tolerated well.
--- NOTE | 2019-12-14 18:06 | NUR ---
LEFT MESSAGE WITH DR. ROLON TO NOTIFY HIM REGARDING NO PLACEMENT TO SNF OF YET.
--- NOTE | 2019-12-14 18:09 | NUR ---
DR. ROLON CALLED BACK AND IS AWARE PATIENT IS STILL PENDING DISCHARGE TO SNF
--- NOTE | 2019-12-14 19:26 | NUR ---
Opening Shift Note Assumed care of patient, awake and alert x 4. No S/S of distress/SOB. Bed is in lowest position and locked. Specialty mattress in place. Board updated. Tele box number matches monitor and leads are in correct placement. Instructed on POC and to call for assist PRN, will continue to monitor for changes Q1hr and PRN.
[2019-12-14] MEDS ORDERED: EPOETIN ALFA 4,000 UNIT/ML VL SC ONE (21:00)
[2019-12-14 22:00] VITALS: BP 94/32
--- NOTE | 2019-12-14 22:02 | NUR ---
Paged MD Bell to notify him of decreased blood pressure (94/32 with MAP of 62). Patient bradycardic as well (54). Patient asymptomatic. Patient was dialyzed today and had 3 liters taken out of body.
[2019-12-14] MEDS: APIXABAN 2.5 MG TAB PO SCH (22:29)
--- NOTE | 2019-12-14 22:48 | NUR ---
Spoke to MD Bell. Per , continue monitoring blood pressure. Addendum: 12/15/19 at 0558 by VICKEY ALVARADO RN Orders: BMP and CBC for 0500 on 12/15/19
[2019-12-15] MEDS: ACETAMINOPHEN 500 MG TAB PO PRN (00:50)
--- NOTE | 2019-12-15 01:40 | NUR ---
Pagemissy Bell because patient is reporting pain 9 out of 10 in her bilateral hands, described as a burning pain that is "unbearable." Patient given Tylenol and Gabapentin, but pain remains.
--- NOTE | 2019-12-15 04:05 | NUR ---
Patient sleeping comfortably now and is in no distress.
[2019-12-15 05:00] VITALS: BP 156/41
[2019-12-15 06:00] LABS: Basophils # (auto) 0 10 ^3/uL (0-0.2); Basophils % (auto) 0.5 % (0.0-2.0); Eosinophils # (auto) 0.1 10 ^3/uL (0-0.8); Eosinophils % (auto) 1.3 % (0.0-7.0); Hematocrit 31.4 % (36.0-46.0); Hemoglobin 10.4 g/dL (12.2-16.2); Lymphocytes # (auto) 1.1 10 ^3/uL (0.4-5.4); Lymphocytes % (auto) 24.8 % (10.0-50.0); Mean Corpuscular Hemoglobin 28.2 pg (28.0-32.0); Mean Corpuscular Hgb Conc. 33.1 g/dL (32.0-36.0); Mean Corpuscular Volume 85.2 fL (80.0-100.0); Monocytes # (auto) 0.6 10 ^3/uL (0-1.3); Monocytes % (auto) 12.3 % (0.0-12.0); Neutrophils # (auto) 2.8 10 ^3/uL (1.6-8.6); Neutrophils % (auto) 61.1 % (37.0-80.0); Nucleated Red Blood Cells % 0.1 %; Platelet Count (auto) 202 10^3/uL (140-450); Red Blood Cells 3.68 10^6/uL (4.0-5.20); Red Cell Distribution Width 16.2 % (11.8-14.3); White Blood Cell 4.5 10^3/uL (4.4-10.8)
[2019-12-15 06:16] LABS: Calcium 9.4 mg/dL (8.5-10.1)
[2019-12-15 06:19] LABS: BUN/Creatinine Ratio 10.9
[2019-12-15] MEDS: GABAPENTIN 100 MG CAP PO SCH ×3 (06:56→22:10)
[2019-12-15] MEDS: InsuLIN REG 1unit/0.01ml Soln (100units/ml) SC SCH ×4 (06:57→22:12)
[2019-12-15] MEDS: ACCU-CHEK COMFORT CURVE STRIP VI SCH ×4 (06:57→22:12)
--- NOTE | 2019-12-15 07:30 | NUR ---
Opening Shift Note Assumed care of patient, awake and alert. No S/S of distress/SOB or pain. Instructed on POC and to call for assist PRN, will continue to monitor for changes Q1hr and PRN.
[2019-12-15] MEDS: SEVELAMER 800 MG TAB PO SCH ×3 (08:00→17:43)
[2019-12-15 09:00] VITALS: BP 140/31
[2019-12-15] MEDS: METOPROLOL SUCCINATE XL 50 MG TAB PO SCH (10:00)
[2019-12-15] MEDS: DOCUSATE SOD 100 MG CAP PO SCH ×2 (10:30→22:10)
[2019-12-15] MEDS: APIXABAN 2.5 MG TAB PO SCH ×2 (10:31→22:10)
[2019-12-15] MEDS: PANTOPRAZOLE 40 MG TAB PO SCH (10:31)
[2019-12-15] MEDS: ERTAPENEM SOD INJ 0.5 GM in SODIUM CHL 0.9% 50 ML IV SCH (11:15)
[2019-12-15 13:00] VITALS: BP 136/34
[2019-12-15 16:44] VITALS: BP 122/41
--- NOTE | 2019-12-15 20:00 | NUR ---
Opening Shift Note Assumed care of patient, awake and alert. No S/S of distress/SOB or pain. Instructed on POC and to call for assist PRN, will continue to monitor for changes Q1hr and PRN.Optifoam in the sacrum intact, and Alesha boots on both heels.
[2019-12-15 22:00] VITALS: BP 123/52
[2019-12-16] MEDS: GABAPENTIN 100 MG CAP PO SCH ×2 (05:24→13:59)
[2019-12-16] MEDS: ACETAMINOPHEN 500 MG TAB PO PRN ×2 (05:24→20:35)
[2019-12-16 05:49] VITALS: BP 121/37
--- NOTE | 2019-12-16 06:20 | NUR ---
Code assist called for patient noted evangelinazure,non responsive to verbal stimuli.
--- NOTE | 2019-12-16 06:20 | NUR ---
Assessment: Temperature 97.6(Fahrenheit),Blood pressure-162/69, Resp.rate-16,02 Sat.by pulse Oximetry-94%,bedside blood glucose-150, Code assist team came at bedside, seen patient with tongue out and slightly drooling, BRIANDA Luther was doing sternal rub, pt.still unresponsive,Vital signs and and blood sugar were taken.Suctioned patient,placed crash cart monitor. at 0630,while monitoring,patient eyes opened,turned her head on left side,still not verbally responding, appeared to have another seizure activity,that lasted about 30 seconds.Pt.started drooling again,suctioned again and vital signs were taken.BP. 153/60.HR: 88,Sa02 on 2L: 92%.DR. Duff ordered Ativan 1mg.I.V. x [address] of head and labs. and Keppra 500mg.I.V.every 12 hours. At 0642, Patients eyes closed,respirations even and unlabored, still not responding to verbal stimuli, VS were taken,BP:141/45,HR:52,RR:16,02 :96%. Per Dr. Duff closely continue monitoring pt. and call for lab. and CT result. Team Members Hospitalist:Dr. Duff, College Specialist:Sondra Smith, drying machine operator package yarns: Jordyn Mcrae Alex P., Primary RN., Eloisa Shannon, SLAB DEPILER OPERATOR: Delvin Horowitz
--- NOTE | 2019-12-16 06:30 | NUR ---
Opening Shift Note Assumed care of patient, awake and alert. No S/S of distress/SOB or pain. Instructed on POC and to call for assist PRN, will continue to monitor for changes Q1hr and PRN. Patient is very lethargic. Opens her eyes to her name but does not respond verbally. O2 sat 100% on 3 L O2 NC. HR 50s. Color good. No S/S distress at this time.
[2019-12-16] MEDS ORDERED: LORazepam 2MG/ML-1ML VIAL ONE (06:32)
--- NOTE | 2019-12-16 06:32 | NUR ---
One mg.ativan i.v.p given by charge nurse Garima for seizure, ordered by Dr. Sherin Garg
[2019-12-16] MEDS: ACCU-CHEK COMFORT CURVE STRIP VI SCH ×4 (06:50→21:54)
[2019-12-16] MEDS: InsuLIN REG 1unit/0.01ml Soln (100units/ml) SC SCH ×4 (06:52→22:33)
[2019-12-16 07:27] LABS: Basophils # (auto) 0 10 ^3/uL (0-0.2); Basophils % (auto) 0.4 % (0.0-2.0); Eosinophils # (auto) 0.1 10 ^3/uL (0-0.8); Eosinophils % (auto) 1.3 % (0.0-7.0); Hematocrit 33.3 % (36.0-46.0); Hemoglobin 10.7 g/dL (12.2-16.2); Lymphocytes # (auto) 1.2 10 ^3/uL (0.4-5.4); Lymphocytes % (auto) 20.3 % (10.0-50.0); Mean Corpuscular Hemoglobin 27.5 pg (28.0-32.0); Mean Corpuscular Hgb Conc. 32.2 g/dL (32.0-36.0); Mean Corpuscular Volume 85.3 fL (80.0-100.0); Monocytes # (auto) 0.5 10 ^3/uL (0-1.3); Monocytes % (auto) 8.2 % (0.0-12.0); Neutrophils # (auto) 4.1 10 ^3/uL (1.6-8.6); Neutrophils % (auto) 69.8 % (37.0-80.0); Platelet Count (auto) 255 10^3/uL (140-450); Red Blood Cells 3.91 10^6/uL (4.0-5.20); White Blood Cell 5.8 10^3/uL (4.4-10.8)
[2019-12-16 07:43] LABS: Albumin 2.7 g/dL (3.4-5.0); Calcium 9.3 mg/dL (8.5-10.1)
--- NOTE | 2019-12-16 07:43 | NUR ---
Report given to Quan Iqbal, patient is asleep, Called the son and leave a message to call back.
[2019-12-16 07:44] LABS: BUN/Creatinine Ratio 11.5
[2019-12-16 07:47] LABS: Bilirubin, Total 0.5 mg/dL (0.2-1.0)
[2019-12-16 07:51] LABS: Potassium 6.1 mmol/L (3.5-5.1)
--- NOTE | 2019-12-16 07:53 | NUR ---
Potassium 6.1. Page placed to hospitalist benefits consulting analyst.
[2019-12-16] MEDS: SEVELAMER 800 MG TAB PO SCH ×3 (08:00→17:31)
--- NOTE | 2019-12-16 08:15 | NUR ---
Return call from Dr. Duff. Orders received to do EKG and inform core finisher as patient is on dialysis.
--- NOTE | 2019-12-16 08:25 | NUR ---
Patient more awake, responds verbally to her name. Will continue to monitor.
--- NOTE | 2019-12-16 08:34 | NUR ---
Paged placed to merchandise handler, Dr. Cavanaugh to inform him of potassium level.
--- NOTE | 2019-12-16 08:45 | NUR ---
Paged placed to Dr. Cali to update her on patient's condition.
[2019-12-16 09:03] VITALS: BP 143/36
[2019-12-16] MEDS ORDERED: InsuLIN REG 1unit/0.01ml Soln (100units/ml) IV ONE (09:30)
[2019-12-16] MEDS ORDERED: CALCIUM GLUC 4.65meq/50ml D5AE 50 ML IV ONE (09:30)
[2019-12-16] MEDS ORDERED: DEXTROSE (50%) 50ML SYRG IV ONE (09:30)
--- NOTE | 2019-12-16 09:30 | NUR ---
Return call from Dr. Cavanaugh. He was informed of potassium level of 6.1. He was informed of seizure activity earlier this AM. New orders received. Return call from Dr. Osman. She was also updated on patient's condition.
--- NOTE | 2019-12-16 09:46 | NUR ---
one amp D50 IV given. 8 units regular insulin IV given. Waiting for calcium gluconate from Pharmacy. Will continue to monitor.
--- NOTE | 2019-12-16 10:09 | NUR ---
Patient taken to CT.
--- NOTE | 2019-12-16 10:35 | NUR ---
PT Patient not in the room during PT visit. Addendum: 12/16/19 at 1037 by LEA SINGH PTT Amended: Links added.
--- NOTE | 2019-12-16 11:00 | NUR ---
Dr. Osman in to see patient as hospitalist. crematorium operator at bedside. Patient is alert, talking. Patient states she has no history of seizures. Will continue to monitor.
--- NOTE | 2019-12-16 11:48 | NUR ---
PT Patient on dialysis during second PT visit this morning. Addendum: 12/16/19 at 1151 by LEA SINGH PTT Amended: Links added.
--- NOTE | 2019-12-16 11:55 | NUR ---
Patient is resting quietly. Dialysis in progress. Will continue to monitor.
--- NOTE | 2019-12-16 12:35 | NUR ---
Patient's daughter at bedside. Patient is alert and oriented, eating lunch. Dialysis in progress. Will continue to monitor.
--- NOTE | 2019-12-16 13:30 | NUR ---
Dialysis completed. VS stable. Patient is alert and oriented, talking with family. Will continue to monitor.
[2019-12-16] MEDS: DOCUSATE SOD 100 MG CAP PO SCH ×2 (13:57→21:53)
[2019-12-16] MEDS: APIXABAN 2.5 MG TAB PO SCH ×2 (13:57→21:52)
[2019-12-16] MEDS: PANTOPRAZOLE 40 MG TAB PO SCH (13:57)
[2019-12-16] MEDS: ERTAPENEM SOD INJ 0.5 GM in SODIUM CHL 0.9% 50 ML IV SCH (13:57)
[2019-12-16] MEDS: METOPROLOL SUCCINATE XL 50 MG TAB PO SCH (13:57)
[2019-12-16 13:59] VITALS: BP 122/22
[2019-12-16 16:17] VITALS: BP 124/51
[2019-12-16] MEDS ORDERED: GABAPENTIN 100 MG CAP PO SCH (17:45)
[2019-12-16] MEDS ORDERED: LORazepam 2MG/ML-1ML VIAL IV PRN ×2 (17:45)
--- NOTE | 2019-12-16 17:47 | NUR ---
Dr. Salazar in to see patient for neurology followup.
--- NOTE | 2019-12-16 20:00 | NUR ---
RECEIVED PATIENT FROM DAY SHIFT. PATIENT RESTING IN BED. NO S/S OF DISTRESS NOTED. FAMILY AT BEDSIDE. C/O PAIN @ 03/12. WILL GIVEN PAIN MEDICATION LATER. DRESSING C/D/I ON SACRUM. POC INSTRUCTED AND ENCOURAGED PATIENT TO CALL FOR ALARM INSTALLATION TECHNICIAN IF NEEDED. BED IN LOWEST POSITION WITH SIDE RAILS UP X 2. CALL GOMEZ WITHIN REACH. ALARM ON. CONTINUE TO MONITOR FOR CHANGES Q1H AND PRN.
--- NOTE | 2019-12-16 20:35 | NUR ---
REASSESSED FOR PAIN. PATIENT SLEEPING. NO S/S OF PAIN NOTED. CONTINUE TO MONITOR.
[2019-12-16] MEDS: ATORVASTATIN 20 MG TAB PO SCH (21:53)
[2019-12-16] MEDS: GABAPENTIN 300 MG CAP PO SCH (21:53)
[2019-12-16 22:00] VITALS: BP 133/42
--- NOTE | 2019-12-16 22:15 | NUR ---
REPOSITIONED PATIENT. PATIENT TOLERATED WELL. CONTINUE CARE.
--- NOTE | 2019-12-17 00:04 | NUR ---
REPOSITIONED PATIENT. PATIENT TOLERATED WELL. CONTINUE CARE.
--- NOTE | 2019-12-17 02:39 | NUR ---
PATIENT SLEEPING. NO S/S OF DISTRESS NOTED. BRITTA BOOTS ON WITH ELEVATED BY PILLOW. CONTINUE TO MONITOR.
--- NOTE | 2019-12-17 04:40 | NUR ---
REPOSITIONED PATIENT. PATIENT TOLERATED WELL. CONTINUE CARE.
[2019-12-17 06:00] VITALS: BP 143/49
[2019-12-17 06:03] LABS: Basophils # (auto) 0 10 ^3/uL (0-0.2); Basophils % (auto) 0.4 % (0.0-2.0); Eosinophils # (auto) 0.1 10 ^3/uL (0-0.8); Eosinophils % (auto) 1.5 % (0.0-7.0); Hematocrit 31.4 % (36.0-46.0); Hemoglobin 10.2 g/dL (12.2-16.2); Lymphocytes # (auto) 0.9 10 ^3/uL (0.4-5.4); Lymphocytes % (auto) 19.8 % (10.0-50.0); Mean Corpuscular Hemoglobin 27.9 pg (28.0-32.0); Mean Corpuscular Hgb Conc. 32.7 g/dL (32.0-36.0); Mean Corpuscular Volume 85.4 fL (80.0-100.0); Monocytes # (auto) 0.5 10 ^3/uL (0-1.3); Monocytes % (auto) 10.4 % (0.0-12.0); Neutrophils # (auto) 3.2 10 ^3/uL (1.6-8.6); Neutrophils % (auto) 67.9 % (37.0-80.0); Platelet Count (auto) 255 10^3/uL (140-450); Red Blood Cells 3.67 10^6/uL (4.0-5.20); Red Cell Distribution Width 16.1 % (11.8-14.3); White Blood Cell 4.7 10^3/uL (4.4-10.8)
[2019-12-17 06:16] LABS: Albumin 2.4 g/dL (3.4-5.0); BUN/Creatinine Ratio 9.4; Calcium 9.1 mg/dL (8.5-10.1); Potassium 5.1 mmol/L (3.5-5.1)
[2019-12-17 06:18] LABS: Bilirubin, Total 0.4 mg/dL (0.2-1.0); Total Protein 6.4 g/dL (6.4-8.2)
[2019-12-17] MEDS: ACCU-CHEK COMFORT CURVE STRIP VI SCH ×4 (06:25→21:52)
[2019-12-17] MEDS: GABAPENTIN 300 MG CAP PO SCH ×3 (06:25→21:51)
[2019-12-17] MEDS: InsuLIN REG 1unit/0.01ml Soln (100units/ml) SC SCH ×4 (06:27→22:00)
--- NOTE | 2019-12-17 06:35 | NUR ---
ACCU-CHECK, BS 144. INSULIN GIVEN ORDERED. CONTINUE TO MONITOR.
--- NOTE | 2019-12-17 07:55 | NUR ---
Opening shift note Assumed care of patient from NOC RN. Patient resting in bed, AOx4, No S/S of distress, SOB or pain. Seizure precautions are in place, bed is in lowest locked position, and call light is within reach. Updated patient on plan of care and patient verbalized understanding. Will continue to monitor Q1hr and PRN.
[2019-12-17] MEDS: SEVELAMER 800 MG TAB PO SCH ×3 (08:04→17:24)
[2019-12-17 09:00] VITALS: BP 113/46
[2019-12-17] MEDS: METOPROLOL SUCCINATE XL 50 MG TAB PO SCH (10:00)
[2019-12-17] MEDS: ERTAPENEM SOD INJ 0.5 GM in SODIUM CHL 0.9% 50 ML IV SCH (11:22)
[2019-12-17] MEDS: APIXABAN 2.5 MG TAB PO SCH ×2 (11:23→21:51)
[2019-12-17] MEDS: PANTOPRAZOLE 40 MG TAB PO SCH (11:23)
[2019-12-17] MEDS: DOCUSATE SOD 100 MG CAP PO SCH ×2 (11:23→21:52)
--- NOTE | 2019-12-17 11:55 | NUR ---
WOUND CARE NOTE: IN TO SEE PATIENT AT THIS TIME FOR WOUND REEVALUATION. PATIENT CONTINUES TO REST ON SPECIALTY AIR MATTRESS, BRITTA BOOTS IN PLACE. CURRENT STEF SCORE IS 13. PATIENT IS ABLE TO HELP TURN/REPOSITION SELF. SHE CONTINUES TO HAVE A STAGE 3 TO THE SACRUM, BUT IT IS MUCH IMPROVED, WITH ONLY 0.5 X 1 CM OPEN WOUND NOTED. WOUND BED IS PALE RED, PURPLE PERIWOUND. APPLIED THERAHONEY AND OPTIFOAM GENTLE SACRAL DRESSING. RIGHT HEEL CONTINUES TO HAVE A PURPLE RIGHT HEEL DTI THAT IS INTACT. NO BLISTERING NOTED. SKIN IS PURPLE TO BRIGHT RED. LEFT HEEL IS PINK, BLANCHABLE. PATIENT IS WEARING BRITTA FOAM BOOTS. NO OTHER WOUNDS NOTED. PHOTOGRAPHED ALL FOR REFERENCE. RECOMMEND: CONTINUATION WITH ALL WOUND CARE ORDERS PREVIOUSLY PRESCRIBED BY MD. WOUND CARE TEAM WILL CONTINUE TO MONITOR. Addendum: 12/17/19 at 1729 by Lisette Ferro RN Amended: Links added.
[2019-12-17 13:00] VITALS: BP 127/37
--- NOTE | 2019-12-17 13:50 | NUR ---
PATIENT TAKEN DOWN FOR MRI
--- NOTE | 2019-12-17 15:30 | NUR ---
ELECTROENCEPHALOGRAM COMPLETED AT BEDSIDE. RN AWARE.
[2019-12-17] MEDS ORDERED: VANCOMYCIN 1GM/250ML 250 ML IV ONE (16:00)
[2019-12-17 17:00] VITALS: BP 155/73
--- NOTE | 2019-12-17 19:14 | NUR ---
CLOSING SHIFT NOTE Care of patient endorsed to NOC Asmita Lopez. Patient has no S/S of distress, SOB, or pain at this time.
--- NOTE | 2019-12-17 19:35 | NUR ---
RECEIVED PATIENT FROM DAY SHIFT. PATIENT RESTING IN BED. NO S/S OF DISTRESS NOTED. FAMILY AT BEDSIDE. STILL C/O PAIN ON HER LEFT HAND AND RIGHT LOWER LEG, BUT BETTER THAN BEFORE. NO PAIN MEDICATION REQUESTED FOR NOW. DRESSING C/D/I ON SACRUM. POC INSTRUCTED AND ENCOURAGED PATIENT TO CALL FOR TECHNICAL MGR IF NEEDED. SPECIAL MATTRESS BED IN LOWEST POSITION WITH SIDE RAILS UP X 2. CALL GOMEZ WITHIN REACH. ALARM ON. CONTINUE TO MONITOR FOR CHANGES Q1H AND PRN.
--- NOTE | 2019-12-17 21:23 | NUR ---
REPOSITIONED PATIENT. PATIENT TOLERATED WELL. CONTINUE CARE.
[2019-12-17] MEDS: ATORVASTATIN 20 MG TAB PO SCH (21:51)
[2019-12-17 22:00] VITALS: BP 117/43
--- NOTE | 2019-12-17 22:23 | NUR ---
ACCU-CHECK, BS 122. NO COVERAGE. CONTINUE TO MONITOR
--- NOTE | 2019-12-17 23:57 | NUR ---
REPOSITIONED PATIENT. PATIENT TOLERATED WELL. CONTINUE TO MONITOR.
--- NOTE | 2019-12-18 02:46 | NUR ---
REPOSITIONED PATIENT. PATIENT TOLERATED WELL. CONTINUE TO MONITOR.
[2019-12-18 05:47] VITALS: BP 134/48
[2019-12-18] MEDS: ACCU-CHEK COMFORT CURVE STRIP VI SCH ×2 (06:30→13:01)
[2019-12-18] MEDS: InsuLIN REG 1unit/0.01ml Soln (100units/ml) SC SCH ×2 (06:30→12:59)
[2019-12-18] MEDS: GABAPENTIN 300 MG CAP PO SCH ×2 (06:30→15:18)
--- NOTE | 2019-12-18 06:31 | NUR ---
ACCU-CHECK, BS 130. NO COVERAGE. CONTINUE TO MONITOR
[2019-12-18] MEDS ORDERED: SODIUM CHL 0.9% 1000 ML BAG XX ONE (08:15)
--- NOTE | 2019-12-18 08:45 | NUR ---
REDUCING MACHINE OPERATOR AT BEDSIDE,HEMODIALYSIS TREATMENT STARTED
--- NOTE | 2019-12-18 11:20 | NUR ---
Hemodialysis ended tolerated well,see head filter tank tender helper notes.
--- NOTE | 2019-12-18 12:10 | NUR ---
MD VISIT DR. ROLON HERE TO SEE AND EXAMINED PATIENT,EXPLAIN TO PATIENT AND SON PLAN OF CARE AND DISCHARGE PLAN,BOTH VERBALIZED UNDERSTANDING.
--- NOTE | 2019-12-18 12:20 | NUR ---
DR. ROLON INFORMED THAT PATIENT HAD EPISODE OF BRADYCARDIA HR 30 REPORTED BY NOC SHIFT RN,VITAL SIGNS REVIEWED BY MD RECEIVED ORDER TO HOLD DOSE OF TOPROL.
[2019-12-18] MEDS: PANTOPRAZOLE 40 MG TAB PO SCH (12:45)
[2019-12-18] MEDS: SEVELAMER 800 MG TAB PO SCH (12:45)
[2019-12-18] MEDS: APIXABAN 2.5 MG TAB PO SCH (12:46)
[2019-12-18] MEDS: DOCUSATE SOD 100 MG CAP PO SCH (12:46)
[2019-12-18] MEDS: METOPROLOL SUCCINATE XL 50 MG TAB PO SCH (12:59)
[2019-12-18 13:00] VITALS: BP 130/30
[2019-12-18] MEDS: ERTAPENEM SOD INJ 0.5 GM in SODIUM CHL 0.9% 50 ML IV SCH (13:47)
--- NOTE | 2019-12-18 15:05 | NUR ---
Discharge pictures taken to sacrum,left and right heel
[2019-12-18 16:18] VITALS: BP 130/45
--- NOTE | 2019-12-18 17:30 | NUR ---
Discharge instructions given as ordered. Encourage to follow up with PMD as instructed. All questions and concerns addressed. Patient son Wyatt verbalized understanding. Medication reconciliation form completed and copy given to patient shiloh Schneider. IV removed with catheter intact, pressure dressing applied. Telemetry unit returned to ICU. Patient taken to vehicle via personal wheelchair with all personal belongings, accompanied by family member. No distress noted at time of departure.
== END 2019-12-18 17:30 | disposition home or self-care (01) | DRG 70 ==
LOC: EDBD 13:06 → ER 13:15 → TELE 13:16 → TELE-WESTW 22:20
PROVIDERS: ADMIT Nurse Practitioner Acute Care; ATTEND Internal Medicine Geriatric Medicine
PROC: 5A1D70Z Performance of Urinary Filtration, Intermittent, Less than 6 Hours Per Day (ICD-10-PCS; principal; 2019-12-10)
PROC: 5A1D70Z Performance of Urinary Filtration, Intermittent, Less than 6 Hours Per Day (ICD-10-PCS; 2019-12-12)
PROC: 5A1D70Z Performance of Urinary Filtration, Intermittent, Less than 6 Hours Per Day (ICD-10-PCS; 2019-12-14)
PROC: 5A1D70Z Performance of Urinary Filtration, Intermittent, Less than 6 Hours Per Day (ICD-10-PCS; 2019-12-16)
PROC: 5A1D70Z Performance of Urinary Filtration, Intermittent, Less than 6 Hours Per Day (ICD-10-PCS; 2019-12-18)
DX: G93.41 Metabolic encephalopathy (principal); I50.23 Acute on chronic systolic (congestive) heart failure; I21.A1 Myocardial infarction type 2; N18.6 End stage renal disease; N30.00 Acute cystitis without hematuria; E44.0 Moderate protein-calorie malnutrition; I13.2 Hypertensive heart and chronic kidney disease with heart failure and with stage 5 chronic kidney disease, or end stage renal disease; Z99.2 Dependence on renal dialysis; D63.8 Anemia in other chronic diseases classified elsewhere; I48.91 Unspecified atrial fibrillation; F41.9 Anxiety disorder, unspecified; K21.9 Gastro-esophageal reflux disease without esophagitis; B96.20 Unspecified Escherichia coli [E. coli] as the cause of diseases classified elsewhere; E11.22 Type 2 diabetes mellitus with diabetic chronic kidney disease; E83.42 Hypomagnesemia; E87.5 Hyperkalemia; F17.200 Nicotine dependence, unspecified, uncomplicated; R56.9 Unspecified convulsions; Z79.01 Long term (current) use of anticoagulants; Z79.4 Long term (current) use of insulin; Z79.899 Other long term (current) drug therapy; Z82.49 Family history of ischemic heart disease and other diseases of the circulatory system; Z86.73 Personal history of transient ischemic attack (TIA), and cerebral infarction without residual deficits; Z83.3 Family history of diabetes mellitus; E78.5 Hyperlipidemia, unspecified
CPT/HCPCS: 36415; 70450; 70551; 71045; 80048; 80053; 80202; 80320; 81001; 82140; 82962; 83605; 83735; 83880; 84443; 84484; 84702; 85025; 85610; 85730; 87040; 87077; 87081; 87086; 87186; 90935; 93005; 95819; 96361; 96365; 97110; 97163; 97530; G0378; J0610; J0696; J1335; J1642; J1815; J7060